=== PATIENT | male | born 1965 | race Caucasian/White ===

== ENCOUNTER 2018-08-25 19:04 | Emergency (ER) | payer MEDICAID ==
[2018-08-25] MEDS: KETOROLAC 30 MG INJ IM (19:35)
== END 2018-08-25 21:25 | disposition home or self-care (01) ==
LOC: FTE 21:25
DX: M25.512 Pain in left shoulder (principal); M25.511 Pain in right shoulder; M25.562 Pain in left knee
CPT/HCPCS: 73020; 73020-50; 73562; 96372; 99284-25